=== PATIENT | female | born 1960 | race Caucasian/White ===

== ENCOUNTER → 2016-07-18 | Outpatient (CLI) | payer BC | LOC: M LAB 09:48 | PROVIDERS: ATTEND Family Medicine | DX: Z53.9 Procedure and treatment not carried out, unspecified reason (principal) ==

== ENCOUNTER → 2017-03-24 | Outpatient (CLI) | payer BC | LOC: M LAB 09:09 | PROVIDERS: ATTEND Nurse Practitioner Pediatrics | DX: E06.3 Autoimmune thyroiditis (principal); E55.9 Vitamin D deficiency, unspecified ==

== ENCOUNTER → 2017-10-31 | Outpatient (CLI) | payer BC ==
[2017-10-31 10:09] LABS: BASO % 0.3 % (0.0-1.0); EOS # 0.1 10^3/uL (0.0-0.50); EOS % 2.2 % (0.0-3.0); HEMATOCRIT 37.2 % (36.0-47.0); HEMOGLOBIN 12.1 g/dl (12.0-15.5); IMMATURE GRANULOCYTE % 0.3 % (0-3.0); LYMPH # 1.2 10^3/uL (1.5-4.5); LYMPH % 33.1 % (24.0-44.0); MEAN CORPUSCULAR HEMOGLOBIN 29.5 pg (27.0-33.0); MEAN CORPUSCULAR HGB CONC 32.5 g/dl (32.0-36.5); MEAN CORPUSCULAR VOLUME 90.7 fl (80.0-96.0); MONO # 0.4 10^3/uL (0.0-0.8); MONO % 12.2 % (0.0-5.0); NEUTROPHILS # 1.9 10^3/uL (1.8-7.7); NEUTROPHILS % 51.9 % (36.0-66.0); PLATELET COUNT, AUTOMATED 284 10^3/uL (150-450); WHITE BLOOD COUNT 3.6 10^3/uL (4.0-10.0)
[2017-10-31 10:10] LABS: HEMATOCRIT 37.2 % (36.0-47.0)
[2017-10-31 11:00] LABS: ALBUMIN 3.8 GM/DL (3.2-5.2); ALBUMIN/GLOBULIN RATIO 1.27 (1.00-1.93); ALKALINE PHOSPHATASE 47 U/L (45-117); ALT/SGPT 22 U/L (12-78); ANION GAP 3 MEQ/L (8-16); AST/SGOT 20 U/L (7-37); BILIRUBIN,TOTAL 0.9 MG/DL (0.2-1.0); BLOOD UREA NITROGEN 17 MG/DL (7-18); CALCIUM LEVEL 8.7 MG/DL (8.5-10.1); CARBON DIOXIDE LEVEL 31 MEQ/L (21-32); CHLORIDE LEVEL 107 MEQ/L (98-107); CREATININE FOR GFR 0.65 MG/DL (0.55-1.30); FREE T3 2.4 PG/ML (2.2-4.0); FREE T4 0.93 NG/DL (0.76-1.46); GLOMERULAR FILTRATION RATE > 60.0 (>51); GLUCOSE, FASTING 84 MG/DL (70-100); POTASSIUM SERUM 4.3 MEQ/L (3.5-5.1); SODIUM LEVEL 141 MEQ/L (136-145); TOTAL PROTEIN 6.8 GM/DL (6.4-8.2)
[2017-10-31 11:12] LABS: TOTAL 25(OH) VITAMIN D 56.9 NG/ML (30.0-100.0)
[2017-10-31 11:13] LABS: VITAMIN B12 LEVEL 567 PG/ML (247-911)
[2017-11-01 09:28] LABS: THYROGLOBULIN ANTIBODY 45.8 U/ML (<60.0); THYROID PEROXIDASE ANTIBODY > 1300.0 U/ML (<60.0)
[2017-11-01 11:43] LABS: PRETREATED FOLATE FOR RBCFOL 9.2 NG/ML; RBC FOLATE 519.4 NG/ML (280-791)
[2017-11-05 14:12] LABS: MAGNESIUM RBC LEVEL 5.2 mg/dL (4.2-6.8); METHYLMALONIC ACID 155 nmol/L (0-378); SELENIUM LEVEL BLOOD 388 ug/L (100-340); VITAMIN B6,PYRIDOXAL PHOSPHATE 11.7 ug/L (2.0-32.8)
[2017-11-05 14:12] LABS: T3 REVERSE 19.5 ng/dL (9.2-24.1)
== END ==
LOC: M RAD 09:33
DX: E06.3 Autoimmune thyroiditis (principal); E55.9 Vitamin D deficiency, unspecified

== ENCOUNTER → 2020-09-19 | Outpatient (REF) | payer BC ==
[2020-09-19 17:20] LABS: CHOLESTEROL LEVEL 215 MG/DL (<200); CHOLESTEROL RISK RATIO 3.307 (<5); FOLATE > 24.0 NG/ML (>5.4); GLUCOSE, FASTING 118 MG/DL (70-100); HDL CHOLESTEROL 65 MG/DL (>40); LDL CHOLESTEROL 137 MG/DL (<100); NON-HDL-C 150 MG/DL; TRIGLYCERIDES LEVEL 63 MG/DL (<150)
[2020-09-19 17:30] LABS: VITAMIN B12 LEVEL 887 PG/ML (247-911)
== END ==
LOC: M SFHCCLAY 10:26
PROVIDERS: ATTEND Nurse Practitioner Family
DX: R73.9 Hyperglycemia, unspecified (principal); R53.83 Other fatigue; E78.5 Hyperlipidemia, unspecified; Z86.39 Personal history of other endocrine, nutritional and metabolic disease; E55.9 Vitamin D deficiency, unspecified

== ENCOUNTER → 2021-05-10 | Outpatient (REF) | payer BC | LOC: M SFHCCLAY 11:02 | PROVIDERS: ATTEND Family Medicine | DX: R87.610 Atypical squamous cells of undetermined significance on cytologic smear of cervix (ASC-US) (principal) | CPT/HCPCS: 87624; G0123 ==

== ENCOUNTER → 2023-07-09 | Outpatient (REF) | payer BC ==
[2023-07-09 17:44] LABS: BASO % 0.5 % (0.0-1.0); EOS % 0.5 % (0.0-3.0); HEMATOCRIT 44.9 % (36.0-47.0); HEMOGLOBIN 14.3 g/dl (12.0-15.5); LYMPH # 1.2 10^3/uL (1.5-5.0); LYMPH % 27.5 % (24.0-44.0); MEAN CORPUSCULAR HEMOGLOBIN 29.7 pg (27.0-33.0); MEAN CORPUSCULAR HGB CONC 31.8 g/dl (32.0-36.5); MEAN CORPUSCULAR VOLUME 93.3 fl (80.0-96.0); MONO # 0.4 10^3/uL (0.0-0.8); MONO % 9.5 % (2.0-8.0); NEUTROPHILS # 2.6 10^3/uL (1.5-8.5); NEUTROPHILS % 61.8 % (36.0-66.0); PLATELET COUNT, AUTOMATED 297 10^3/uL (150-450); RED BLOOD COUNT 4.81 10^6/uL (4.00-5.40); WHITE BLOOD COUNT 4.2 10^3/uL (4.0-10.0)
[2023-07-09 17:49] LABS: ERYTHROCYTE SEDIMENTATION RATE 12 mm/hr (0-30)
[2023-07-09 18:10] LABS: THYROID STIMULATING HORMONE 3.777 uIU/ML (0.55-4.78); THYROXINE (T4) 13.9 UG/DL (4.5-10.9)
[2023-07-09 18:12] LABS: C REACTIVE PROTEIN QUANTITATIV < 0.40 MG/DL (<1.0)
[2023-07-09 18:13] LABS: ALBUMIN 4.3 G/DL (3.2-5.2); ALKALINE PHOSPHATASE 75 U/L (46-116); ALT/SGPT 23 U/L (7.0-40); AST/SGOT 19 U/L (<34); BILIRUBIN,TOTAL 0.7 MG/DL (0.3-1.2); BLOOD UREA NITROGEN 15 MG/DL (9-23); CALCIUM LEVEL 9.5 MG/DL (8.3-10.6); CARBON DIOXIDE LEVEL 30 MMOL/L (20-31); CHLORIDE LEVEL 105 MMOL/L (98-107); CHOLESTEROL LEVEL 217 MG/DL (<200); CHOLESTEROL RISK RATIO 4.35 (<5); CREATININE FOR GFR 0.62 MG/DL (0.55-1.30); GLOMERULAR FILTRATION RATE > 60.0 (>45); GLUCOSE, FASTING 94 MG/DL (74-106); HDL CHOLESTEROL 49.8 MG/DL (>40); LDL CHOLESTEROL 139.8 MG/DL (<100); NON-HDL-C 167.2 MG/DL; RHEUMATOID FACTOR QUANT 4.1 IU/ML (<14); SODIUM LEVEL 140 MMOL/L (136-145); TOTAL PROTEIN 7.2 G/DL (5.7-8.2); TRIGLYCERIDES LEVEL 137 MG/DL (<150)
[2023-07-09 18:16] LABS: FREE THYROXINE INDEX 5.1 % (1.3-4.8); T UPTAKE 36.7 % (22.5-37.0)
== END ==
LOC: M SFHCCLAY 11:34
PROVIDERS: ATTEND Nurse Practitioner Family
DX: E78.5 Hyperlipidemia, unspecified (principal); Z86.39 Personal history of other endocrine, nutritional and metabolic disease; D72.9 Disorder of white blood cells, unspecified; L40.9 Psoriasis, unspecified